=== PATIENT | female | born 1950 | race African-American/Black ===

== ENCOUNTER 2017-08-09 09:21 | Observation (INO) ==
[2017-08-09] MEDS ORDERED: ONDANSETRON 4 MG/2 ML VIAL IV STA (11:40)
[2017-08-09] MEDS ORDERED: FUROSEMIDE 40 MG/4 ML VIAL IV STA (11:40)
[2017-08-09] MEDS ORDERED: MORPHINE 2 MG/1 ML SYRINGE IV STA (11:40)
[2017-08-09] MEDS ORDERED: NITROGLYCERIN 2% OINT 1 INCH/GM PACK TOP STA (11:40)
[2017-08-09] MEDS ORDERED: ASPIRIN 325 MG TABLET PO STA (11:40)
[2017-08-09 12:19] LABS: Basophils % 0.3 % (0.0-0.8); Eosinophils % 0.5 % (0.00-10.9); Hematocrit 33.7 VOL% (35.7-47.0); Hemoglobin 10.6 GM/DL (12.0-16.0); Immature Granulocytes % 0.3 %; Immature Granulocytes Absolute 0.03 #; Lymphocytes # 2.4 10*3/uL (1.4-4.0); Lymphocytes % 26.7 % (21.3-54.2); Mean Corpuscular HGB Conc 31.5 GM/DL (32-36); Mean Corpuscular Hemoglobin 26 PG (27-34); Mean Corpuscular Volume 81.4 FL (87-102); Mean Platelet Volume 11.3 FL (9.6-12.0); Monocytes # 0.6 10*3/uL (0.11-0.8); Monocytes % 6.9 % (1.7-12.7); Neutrophils # 5.7 10*3/uL (1.4-7.4); Neutrophils % 65.3 % (38.7-73.9); Platelet Count 236 T/CUMM (130-400); Red Blood Count 4.14 MC/CUMM (3.8-5.5); Red Cell Distribution Width 15.9 % (9.3-17.3); White Blood Count 8.8 T/CUMM (4-12)
[2017-08-09 12:35] LABS: PT Patient Result 10.2 SECS
[2017-08-09 12:41] LABS: Magnesium 1.9 MG/DL (1.8-2.4)
[2017-08-09 12:50] LABS: Alanine Aminotransferase 18 U/L (13-56); Albumin 3.5 G/DL (3.4-5.0); Alkaline Phosphatase 109 U/L (45-117); Aspartate Amino Transferase 15 U/L (0-37); Blood Urea Nitrogen 11 MG/DL (7-18); Calcium 8.7 MG/DL (8.5-10.1); Glucose 111 MG/DL (74-106); Sodium 136 MMOL/L (136-145); Total Protein 7.5 G/DL (6.4-8.3); Troponin I Only < 0.015 NG/ML (0.00-0.045)
[2017-08-09 12:53] LABS: Potassium 2.5 MMOL/L (3.5-5.1)
[2017-08-09] MEDS ORDERED: POTASSIUM CHLORIDE 20 MEQ TABLET PO ONE ×2 (13:30→16:17)
[2017-08-09] MEDS ORDERED: POTASSIUM CHLORIDE 20 MEQ TABLET PO STA (13:36)
[2017-08-09] MEDS ORDERED: FUROSEMIDE 40 MG/4 ML VIAL ONE (13:41)
[2017-08-09] MEDS ORDERED: ONDANSETRON 4 MG/2 ML VIAL ONE (13:41)
[2017-08-09] MEDS ORDERED: NITROGLYCERIN 2% OINT 1 INCH/GM PACK TOP ONE (13:41)
[2017-08-09] MEDS ORDERED: MORPHINE 2 MG/1 ML SYRINGE ONE (13:41)
[2017-08-09] MEDS ORDERED: ASPIRIN 325 MG TABLET ONE (13:41)
[2017-08-09] MEDS ORDERED: LEVOFLOXACIN INJ 750 MG in PREMIX 1 EACH IV STA (13:43)
[2017-08-09] MEDS ORDERED: ENOXAPARIN 100 MG/ML SYRINGE SUBCUT STA (13:47)
[2017-08-09] MEDS ORDERED: LEVOFLOXACIN INJ 150 ML IV ONE (14:32)
[2017-08-09] MEDS ORDERED: ENOXAPARIN 120 MG/0.8 ML SYRINGE SUBCUT ONE (14:32)
[2017-08-09] MEDS ORDERED: ONDANSETRON 4 MG/2 ML VIAL IV PRN (14:57)
[2017-08-09] MEDS ORDERED: ACETAMINOPHEN 325 MG TABLET PO PRN (14:57)
[2017-08-09] MEDS ORDERED: PANTOPRAZOLE 40 MG TABLET PO SCH (15:00)
[2017-08-09] MEDS ORDERED: MAGNESIUM SULF RIDER 4 GM in PREMIX 1 EACH IV PRN (15:04)
[2017-08-09] MEDS ORDERED: ALBUTEROL/IPRATROPIUM 3 ML NEB RESP TX PRN (15:04)
[2017-08-09] MEDS ORDERED: MAGNESIUM SULF RIDER 2 GM in PREMIX 1 EACH IV PRN (15:04)
[2017-08-09 16:04] LABS: Apearance,Urine CLEAR (Clear); Bacteria,Urine Occasional /HPF (Few); Bilirubin,Urine Negative (Negative); Blood, Urine Negative (Negative); Glucose,Urine (UA) Negative (Negative); Ketones,Urine Negative (Negative); Nitrite,Urine Negative (Negative); Protein,Urine Negative; RBC,Urine <1 /HPF (0-4); Squamous Epithelial Cell,Urine Occasional /HPF (0-10); Urine Color Straw (Yellow); Urine Specific Gravity 1.003 (1.001-1.035); Urine Urobilinogen < 2.0 EU/DL (0.2-1.0); WBC,Urine <1 /HPF (0-6)
[2017-08-09] MEDS: ASPIRIN EC 81 MG TABLET PO SCH (18:43)
[2017-08-09] MEDS ORDERED: LURASIDONE 60 MG TABLET PO SCH (23:00)
[2017-08-09] MEDS ORDERED: ZALEPLON 5 MG CAPSULE PO PRN (23:00)
[2017-08-10] MEDS: MONTELUKAST 10 MG TABLET PO SCH ×2 (00:18→20:55)
[2017-08-10] MEDS: POTASSIUM CHLORIDE 20 MEQ TABLET PO SCH ×3 (00:18→20:55)
[2017-08-10 05:02] LABS: Basophils % 0.4 % (0.0-0.8); Eosinophils # 0.1 10*3/uL (0.0-0.87); Eosinophils % 0.8 % (0.00-10.9); Hematocrit 31.2 VOL% (35.7-47.0); Hemoglobin 10.1 GM/DL (12.0-16.0); Immature Granulocytes % 0.3 %; Immature Granulocytes Absolute 0.03 #; Lymphocytes % 30.3 % (21.3-54.2); Mean Corpuscular HGB Conc 32.4 GM/DL (32-36); Mean Corpuscular Hemoglobin 26 PG (27-34); Mean Corpuscular Volume 79.6 FL (87-102); Mean Platelet Volume 10.7 FL (9.6-12.0); Monocytes # 0.9 10*3/uL (0.11-0.8); Monocytes % 8.7 % (1.7-12.7); Neutrophils # 5.8 10*3/uL (1.4-7.4); Neutrophils % 59.5 % (38.7-73.9); Platelet Count 206 T/CUMM (130-400); Red Blood Count 3.92 MC/CUMM (3.8-5.5); Red Cell Distribution Width 15.9 % (9.3-17.3); White Blood Count 9.8 T/CUMM (4-12)
[2017-08-10 05:26] LABS: Calcium 8.4 MG/DL (8.5-10.1); Osmolality,Calculated 279.4 MOS/KG (273-304); Potassium 3.2 MMOL/L (3.5-5.1)
[2017-08-10] MEDS ORDERED: ALBUTEROL 2.5 MG/3 ML NEB RESP TX SCH (07:00)
[2017-08-10] MEDS ORDERED: PROMETHAZINE 25 MG TABLET PO PRN (08:37)
[2017-08-10] MEDS ORDERED: POTASSIUM CHLORIDE 20 MEQ TABLET PO ONE (08:39)
[2017-08-10] MEDS ORDERED: ASPIRIN EC 81 MG TABLET PO SCH (09:00)
[2017-08-10] MEDS ORDERED: metOLazone 5 MG TABLET PO SCH (09:00)
[2017-08-10] MEDS ORDERED: Linaclotide [Linzess] 72 MCG PO SCH (09:00)
[2017-08-10] MEDS ORDERED: predniSONE 10 MG TABLET PO SCH (09:00)
[2017-08-10] MEDS: CLINDAMYCIN 300 MG CAPSULE PO SCH ×2 (09:09→16:34)
[2017-08-10] MEDS: VALSARTAN 160 MG TABLET PO SCH (09:09)
[2017-08-10] MEDS: ASPIRIN EC 81 MG TABLET PO SCH (09:10)
[2017-08-10] MEDS: SERTRALINE 100 MG TABLET PO SCH (09:10)
[2017-08-10] MEDS: PANTOPRAZOLE 40 MG TABLET PO SCH ×2 (09:10→20:55)
[2017-08-10] MEDS: LORazepam 0.5 MG TABLET PO SCH (09:11)
[2017-08-10 10:44] LABS: Risk Ratio 3.67; VLDL CHOLESTEROL 24.2 MG/DL
[2017-08-10] MEDS: ALBUTEROL/IPRATROPIUM 3 ML NEB RESP TX SCH (18:35)
[2017-08-10] MEDS ORDERED: ROSUVASTATIN 20 MG TABLET PO SCH (21:00)
[2017-08-10] MEDS ORDERED: LURASIDONE 40 MG TABLET PO SCH (21:00)
[2017-08-10] MEDS: MORPHINE 2 MG/1 ML SYRINGE IV PRN (21:14)
[2017-08-11] MEDS: CLINDAMYCIN 300 MG CAPSULE PO SCH ×2 (01:15→10:02)
[2017-08-11] MEDS: MORPHINE 2 MG/1 ML SYRINGE IV PRN (05:20)
[2017-08-11 06:07] LABS: Basophils % 0.3 % (0.0-0.8); Eosinophils # 0.1 10*3/uL (0.0-0.87); Eosinophils % 0.6 % (0.00-10.9); Hemoglobin 9.9 GM/DL (12.0-16.0); Immature Granulocytes % 0.3 %; Immature Granulocytes Absolute 0.03 #; Lymphocytes # 3.8 10*3/uL (1.4-4.0); Lymphocytes % 35.1 % (21.3-54.2); Mean Corpuscular HGB Conc 30.9 GM/DL (32-36); Mean Corpuscular Hemoglobin 26 PG (27-34); Mean Corpuscular Volume 82.7 FL (87-102); Mean Platelet Volume 11.6 FL (9.6-12.0); Monocytes # 0.8 10*3/uL (0.11-0.8); Monocytes % 7.1 % (1.7-12.7); Neutrophils # 6.1 10*3/uL (1.4-7.4); Neutrophils % 56.6 % (38.7-73.9); Platelet Count 225 T/CUMM (130-400); Red Blood Count 3.87 MC/CUMM (3.8-5.5); Red Cell Distribution Width 16.2 % (9.3-17.3); White Blood Count 10.8 T/CUMM (4-12)
[2017-08-11 06:44] LABS: Calcium 8.9 MG/DL (8.5-10.1); Osmolality,Calculated 281.3 MOS/KG (273-304); Potassium 3.9 MMOL/L (3.5-5.1)
[2017-08-11] MEDS: ALBUTEROL/IPRATROPIUM 3 ML NEB RESP TX SCH (08:42)
[2017-08-11] MEDS: LORazepam 0.5 MG TABLET PO SCH (10:02)
[2017-08-11] MEDS: VALSARTAN 160 MG TABLET PO SCH (10:02)
[2017-08-11] MEDS: ASPIRIN EC 81 MG TABLET PO SCH (10:02)
[2017-08-11] MEDS: SERTRALINE 100 MG TABLET PO SCH (10:03)
[2017-08-11] MEDS: PANTOPRAZOLE 40 MG TABLET PO SCH (10:03)
[2017-08-11] MEDS: POTASSIUM CHLORIDE 20 MEQ TABLET PO SCH (10:03)
[2017-08-11 12:26] VITALS: BP 126/57
== END 2017-08-11 12:30 | disposition home or self-care (01) ==
LOC: N.ED 09:21 → N.EDINP 09:21 → N.TELES 17:15 → N.2E 08-10 18:53
PROVIDERS: ADMIT Internal Medicine; ATTEND Internal Medicine

== ENCOUNTER 2018-06-27 13:50 | Observation (INO) ==
[2018-06-27 14:30] LABS: Basophils % 0.5 % (0.0-0.8); Eosinophils # 0.1 10*3/uL (0.0-0.87); Eosinophils % 0.8 % (0.00-10.9); Hematocrit 36.1 VOL% (35.7-47.0); Hemoglobin 11.5 GM/DL (12.0-16.0); Immature Granulocytes % 0.4 %; Immature Granulocytes Absolute 0.03 #; Lymphocytes # 2.9 10*3/uL (1.4-4.0); Lymphocytes % 35.3 % (21.3-54.2); Mean Corpuscular HGB Conc 31.9 GM/DL (32-36); Mean Corpuscular Hemoglobin 27 PG (27-34); Mean Corpuscular Volume 83.4 FL (87-102); Mean Platelet Volume 10.5 FL (9.6-12.0); Monocytes # 0.6 10*3/uL (0.11-0.8); Monocytes % 7.3 % (1.7-12.7); Neutrophils # 4.6 10*3/uL (1.4-7.4); Neutrophils % 55.7 % (38.7-73.9); Platelet Count 294 T/CUMM (130-400); Red Blood Count 4.33 MC/CUMM (3.8-5.5); Red Cell Distribution Width 14.1 % (9.3-17.3); White Blood Count 8.3 T/CUMM (4-12)
[2018-06-27 14:44] LABS: Osmolality,Calculated 260.7 MOS/KG (273-304)
[2018-06-27 14:48] LABS: Potassium 2.4 MMOL/L (3.5-5.1)
[2018-06-27 14:54] LABS: Apearance,Urine CLEAR (Clear); Bilirubin,Urine Negative (Negative); Blood, Urine Negative (Negative); Glucose,Urine (UA) Negative (Negative); Hyaline Casts,Urine 3 /LPF (0-3); Ketones,Urine Negative (Negative); Mucus,Urine Occasional /LPF (Occasional); Nitrite,Urine Negative (Negative); Protein,Urine Negative; RBC,Urine <1 /HPF (0-4); Squamous Epithelial Cell,Urine Occasional /HPF (0-10); Urine Color Yellow (Yellow); Urine Urobilinogen < 2.0 EU/DL (0.2-1.0); WBC,Urine <1 /HPF (0-6)
[2018-06-27] MEDS ORDERED: POTASSIUM CHLORIDE 20 MEQ TABLET PO STA (14:55)
[2018-06-27] MEDS ORDERED: POTASSIUM CHLORIDE RIDER 20 MEQ in PREMIX 1 EACH IV STA (14:58)
[2018-06-27] MEDS: POTASSIUM CHLORIDE RIDER 10 MEQ in PREMIX 1 EACH IV SCH ×2 (15:25→18:09)
[2018-06-27] MEDS ORDERED: DOCUSATE SODIUM 100 MG CAPSULE PO PRN (15:58)
[2018-06-27] MEDS ORDERED: LACTULOSE 20 GM/30 ML UDCUP PO PRN (15:58)
[2018-06-27] MEDS ORDERED: ONDANSETRON 4 MG/2 ML VIAL IV PRN (15:58)
[2018-06-27] MEDS ORDERED: SODIUM CHLORIDE 0.9% 1,000 ML IV SCH (16:00)
[2018-06-27] MEDS ORDERED: AMITRIPTYLINE 10 MG TABLET PO PRN (16:00)
[2018-06-27] MEDS ORDERED: MAGNESIUM SULF RIDER 2 GM in PREMIX 1 EACH IV PRN (16:06)
[2018-06-27] MEDS ORDERED: MAGNESIUM SULF RIDER 4 GM in PREMIX 1 EACH IV PRN (16:06)
[2018-06-27] MEDS ORDERED: NITROGLYCERIN SL 0.4 MG TABLET SL PRN (17:13)
[2018-06-27] MEDS: POTASSIUM CHLORIDE 20 MEQ TABLET PO SCH ×3 (18:09→22:25)
[2018-06-27] MEDS: SPIRONOLACTONE 50 MG TABLET PO SCH (18:09)
[2018-06-27] MEDS: DOCUSATE SODIUM 100 MG CAPSULE PO SCH (18:27)
[2018-06-27] MEDS: ALBUTEROL/IPRATROPIUM 3 ML NEB RESP TX SCH (18:45)
[2018-06-27] MEDS ORDERED: ACETAMINOPHEN 325 MG TABLET PO PRN (20:04)
[2018-06-27] MEDS: MECLIZINE 12.5 MG TABLET PO SCH (20:26)
[2018-06-27] MEDS ORDERED: MONTELUKAST 10 MG TABLET PO SCH (21:00)
[2018-06-27] MEDS ORDERED: ROSUVASTATIN 20 MG TABLET PO SCH (21:00)
[2018-06-27] MEDS: POTASSIUM CHLORIDE RIDER 10 MEQ in PREMIX 1 EACH IV PRN ×3 (21:25→23:43)
[2018-06-27] MEDS ORDERED: ZALEPLON 5 MG CAPSULE PO PRN (21:35)
[2018-06-27] MEDS: IBUPROFEN 600 MG TABLET PO PRN (22:25)
[2018-06-28] MEDS: POTASSIUM CHLORIDE RIDER 10 MEQ in PREMIX 1 EACH IV PRN ×2 (00:46→01:57)
[2018-06-28] MEDS: POTASSIUM CHLORIDE 20 MEQ TABLET PO SCH ×2 (01:57→04:27)
[2018-06-28 05:45] LABS: Basophils % 0.4 % (0.0-0.8); Eosinophils # 0.1 10*3/uL (0.0-0.87); Hematocrit 35.2 VOL% (35.7-47.0); Hemoglobin 11.3 GM/DL (12.0-16.0); Immature Granulocytes % 0.3 %; Immature Granulocytes Absolute 0.02 #; Lymphocytes # 2.4 10*3/uL (1.4-4.0); Lymphocytes % 35.9 % (21.3-54.2); Mean Corpuscular HGB Conc 32.1 GM/DL (32-36); Mean Corpuscular Hemoglobin 27 PG (27-34); Mean Corpuscular Volume 83.4 FL (87-102); Mean Platelet Volume 10.4 FL (9.6-12.0); Monocytes # 0.6 10*3/uL (0.11-0.8); Monocytes % 8.9 % (1.7-12.7); Neutrophils # 3.6 10*3/uL (1.4-7.4); Neutrophils % 53.5 % (38.7-73.9); Platelet Count 252 T/CUMM (130-400); Red Blood Count 4.22 MC/CUMM (3.8-5.5); Red Cell Distribution Width 13.9 % (9.3-17.3); White Blood Count 6.7 T/CUMM (4-12)
[2018-06-28 06:33] LABS: Albumin 3.1 G/DL (3.4-5.0); Bilirubin,Total 0.5 MG/DL (0.2-1.0); Calcium 8.7 MG/DL (8.5-10.1); Osmolality,Calculated 262.5 MOS/KG (273-304); Potassium 3.9 MMOL/L (3.5-5.1); Risk Ratio 1.83; Thyroid Stimulating Hormone 0.878 uIU/ml (0.358-3.74); VLDL CHOLESTEROL 13.4 MG/DL
[2018-06-28] MEDS: ALBUTEROL/IPRATROPIUM 3 ML NEB RESP TX SCH (07:15)
[2018-06-28 08:06] VITALS: BP 131/72
[2018-06-28] MEDS ORDERED: amLODIPine 10 MG TABLET PO SCH (09:00)
[2018-06-28] MEDS ORDERED: IPRATROPIUM/ALBUTEROL INHALER INH SCH (09:00)
[2018-06-28] MEDS ORDERED: ASPIRIN EC 81 MG TABLET PO SCH (09:00)
[2018-06-28] MEDS ORDERED: CETIRIZINE 10 MG TABLET PO SCH (09:00)
[2018-06-28] MEDS ORDERED: PANTOPRAZOLE 40 MG TABLET PO SCH (09:00)
[2018-06-28] MEDS ORDERED: SERTRALINE 100 MG TABLET PO SCH (09:00)
[2018-06-28] MEDS: DOCUSATE SODIUM 100 MG CAPSULE PO SCH (09:18)
[2018-06-28] MEDS: SPIRONOLACTONE 50 MG TABLET PO SCH (09:18)
[2018-06-28] MEDS: MECLIZINE 12.5 MG TABLET PO SCH (09:18)
[2018-06-28] MEDS: IBUPROFEN 600 MG TABLET PO PRN (09:19)
[2018-06-28] MEDS ORDERED: LACTULOSE 20 GM/30 ML UDCUP PO ONE (09:20)
== END 2018-06-28 10:49 | disposition home or self-care (01) ==
LOC: N.EDINP 13:50 → N.ED 13:50 → N.5E 16:46
PROVIDERS: ADMIT Internal Medicine; ATTEND Internal Medicine

== ENCOUNTER 2018-12-26 06:17 | Observation (INO) ==
[2018-12-26] MEDS ORDERED: ASPIRIN 325 MG TABLET PO STA (06:46)
[2018-12-26] MEDS ORDERED: SODIUM CHLORIDE 0.9% 1,000 ML IV STA (06:46)
[2018-12-26 06:48] LABS: Basophils % 0.5 % (0.0-0.8); Eosinophils # 0.1 10*3/uL (0.0-0.87); Eosinophils % 1.4 % (0.00-10.9); Hematocrit 36.1 VOL% (35.7-47.0); Hemoglobin 11.1 GM/DL (12.0-16.0); Immature Granulocytes % 0.2 %; Immature Granulocytes Absolute 0.01 #; Lymphocytes # 2.5 10*3/uL (1.4-4.0); Lymphocytes % 42.6 % (21.3-54.2); Mean Corpuscular HGB Conc 30.7 GM/DL (32-36); Mean Platelet Volume 11.1 FL (9.6-12.0); Monocytes % 8.7 % (1.7-12.7); Neutrophils % 46.6 % (38.7-73.9); Platelet Count 190 T/CUMM (130-400); Red Cell Distribution Width 13.5 % (9.3-17.3); White Blood Count 5.9 T/CUMM (4-12)
[2018-12-26 07:03] LABS: Alanine Aminotransferase 16 U/L (13-56); Albumin 3.6 G/DL (3.4-5.0); Alkaline Phosphatase 93 U/L (45-117); Aspartate Amino Transferase 13 U/L (0-37); Bilirubin,Total < 0.39 MG/DL (0.2-1.0); Blood Urea Nitrogen 14 MG/DL (7-18); Calcium 8.8 MG/DL (8.5-10.1); Glucose 108 MG/DL (74-106); Total Protein 7.2 G/DL (6.4-8.3); Troponin I < 0.015 NG/ML (0.00-0.045)
[2018-12-26 07:19] LABS: Calcium 8.7 MG/DL (8.5-10.1); Osmolality,Calculated 289.7 MOS/KG (273-304)
[2018-12-26] MEDS ORDERED: ONDANSETRON 4 MG/2 ML VIAL ONE (08:00)
[2018-12-26] MEDS ORDERED: ONDANSETRON 4 MG/2 ML VIAL IV ONE (08:04)
[2018-12-26] MEDS ORDERED: ACETAMINOPHEN 325 MG TABLET PO PRN (09:29)
[2018-12-26] MEDS ORDERED: ONDANSETRON 4 MG/2 ML VIAL IV PRN (09:29)
[2018-12-26] MEDS ORDERED: DOCUSATE SODIUM 100 MG CAPSULE PO PRN (09:29)
[2018-12-26] MEDS ORDERED: ALBUTEROL/IPRATROPIUM 3 ML NEB RESP TX PRN (09:33)
[2018-12-26] MEDS ORDERED: NITROGLYCERIN SL 0.4 MG TABLET SL PRN (09:36)
[2018-12-26 10:31] LABS: Risk Ratio 1.93; Thyroid Stimulating Hormone 0.428 uIU/ml (0.358-3.74); VLDL CHOLESTEROL 11.6 MG/DL
[2018-12-26] MEDS: LEVOFLOXACIN 750 MG TABLET PO SCH (12:10)
[2018-12-26] MEDS: SERTRALINE 100 MG TABLET PO SCH (16:27)
[2018-12-26] MEDS ORDERED: ENOXAPARIN 40 MG/0.4 ML SYRINGE SUBCUT SCH (21:00)
[2018-12-26] MEDS ORDERED: ZALEPLON 5 MG CAPSULE PO SCH (21:00)
[2018-12-26] MEDS ORDERED: ROSUVASTATIN 20 MG TABLET PO SCH (21:00)
[2018-12-26] MEDS ORDERED: MONTELUKAST 10 MG TABLET PO SCH (21:00)
[2018-12-26] MEDS ORDERED: diphenhydrAMINE CAP 25 MG CAPSULE PO SCH (21:00)
[2018-12-27 05:12] LABS: Basophils % 0.3 % (0.0-0.8); Eosinophils # 0.2 10*3/uL (0.0-0.87); Eosinophils % 2.8 % (0.00-10.9); Hematocrit 35.4 VOL% (35.7-47.0); Immature Granulocytes % 0.2 %; Immature Granulocytes Absolute 0.01 #; Lymphocytes # 3.1 10*3/uL (1.4-4.0); Lymphocytes % 50.7 % (21.3-54.2); Mean Corpuscular HGB Conc 31.1 GM/DL (32-36); Mean Platelet Volume 11.9 FL (9.6-12.0); Monocytes % 7.6 % (1.7-12.7); Neutrophils % 38.4 % (38.7-73.9); Platelet Count 182 T/CUMM (130-400); Red Blood Count 4.07 MC/CUMM (3.8-5.5); Red Cell Distribution Width 13.5 % (9.3-17.3); White Blood Count 6.1 T/CUMM (4-12)
[2018-12-27 05:52] LABS: Eosinophils 4 % (0-10); Lymphocytes 54 % (20-55); Pappenheimer Bodies Few; Platelet Estimate Decreased; Segmented Neutrophils 39 % (50-85); Total Cells Counted 100
[2018-12-27 05:58] LABS: Albumin 3.4 G/DL (3.4-5.0); Bilirubin,Total 0.5 MG/DL (0.2-1.0); Calcium 8.7 MG/DL (8.5-10.1); Osmolality,Calculated 281.1 MOS/KG (273-304); Total Protein 6.9 G/DL (6.4-8.3)
[2018-12-27] MEDS ORDERED: ASPIRIN EC 81 MG TABLET PO SCH (09:00)
[2018-12-27] MEDS ORDERED: CETIRIZINE 10 MG TABLET PO SCH (09:00)
[2018-12-27] MEDS ORDERED: PANTOPRAZOLE 40 MG TABLET PO SCH (09:00)
[2018-12-27] MEDS ORDERED: amLODIPine 10 MG TABLET PO SCH (09:00)
[2018-12-27] MEDS ORDERED: FERROUS SULFATE 325 MG TABLET PO SCH (09:00)
[2018-12-27] MEDS ORDERED: methylPREDNISolone ACETATE 40 MG/1 ML VIAL IM ONE (09:00)
[2018-12-27] MEDS: SERTRALINE 100 MG TABLET PO SCH (09:04)
[2018-12-27] MEDS: LEVOFLOXACIN 750 MG TABLET PO SCH (09:04)
[2018-12-27 12:04] VITALS: BP 165/72
== END 2018-12-27 13:40 | disposition home or self-care (01) ==
LOC: N.EDINP 06:17 → N.ED 06:17 → N.2E 08:01
PROVIDERS: ADMIT Internal Medicine; ATTEND Internal Medicine

== ENCOUNTER 2019-05-10 11:43 | Observation (INO) ==
[2019-05-10] MEDS ORDERED: ONDANSETRON 4 MG/2 ML VIAL IV STA (12:14)
[2019-05-10] MEDS ORDERED: ASPIRIN 325 MG TABLET PO STA (12:14)
[2019-05-10] MEDS ORDERED: NITROGLYCERIN 2% OINT 1 INCH/GM PACK TOP STA (12:14)
[2019-05-10 12:35] LABS: Basophils % 0.2 % (0.0-0.8); Eosinophils # 0.1 10*3/uL (0.0-0.87); Eosinophils % 1.1 % (0.00-10.9); Hematocrit 36.3 VOL% (35.7-47.0); Hemoglobin 11.4 GM/DL (12.0-16.0); Immature Granulocytes % 0.4 %; Immature Granulocytes Absolute 0.02 #; Lymphocytes % 36.2 % (21.3-54.2); Mean Corpuscular HGB Conc 31.4 GM/DL (32-36); Mean Corpuscular Volume 87.7 FL (87-102); Mean Platelet Volume 11.5 FL (9.6-12.0); Monocytes % 11.7 % (1.7-12.7); Neutrophils % 50.4 % (38.7-73.9); Platelet Count 164 T/CUMM (130-400); Red Blood Count 4.14 MC/CUMM (3.8-5.5); Red Cell Distribution Width 14.6 % (9.3-17.3); White Blood Count 5.5 T/CUMM (4-12)
[2019-05-10 12:42] LABS: INR 0.9; PT Patient Result 10.2 SECS (9.6-12.2); Partial Thromboplastin Time 22.6 SECS (20.8-36.0)
[2019-05-10 12:58] LABS: Alanine Aminotransferase 18 U/L (13-56); Albumin 3.4 G/DL (3.4-5.0); Alkaline Phosphatase 81 U/L (45-117); Aspartate Amino Transferase 14 U/L (0-37); Blood Urea Nitrogen 8 MG/DL (7-18); Calcium 8.6 MG/DL (8.5-10.1); Estimated Glom Filtration Rate 80 ML/MIN; Glucose 88 MG/DL (74-106); Osmolality,Calculated 284.7 MOS/KG (273-304); Total Protein 6.8 G/DL (6.4-8.3); Troponin I < 0.015 NG/ML (0.00-0.045)
[2019-05-10] MEDS ORDERED: ALBUTEROL/IPRATROPIUM 3 ML NEB RESP TX STA (12:59)
[2019-05-10] MEDS ORDERED: FUROSEMIDE 40 MG/4 ML VIAL IV STA (12:59)
[2019-05-10] MEDS ORDERED: ONDANSETRON 4 MG/2 ML VIAL IV PRN (14:47)
[2019-05-10] MEDS ORDERED: ACETAMINOPHEN 325 MG TABLET PO PRN (14:47)
[2019-05-10] MEDS ORDERED: ENOXAPARIN 40 MG/0.4 ML SYRINGE SUBCUT SCH (15:00)
[2019-05-10] MEDS ORDERED: LACTULOSE 20 GM/30 ML UDCUP PO PRN (15:01)
[2019-05-10] MEDS ORDERED: ALBUTEROL 2.5 MG/3 ML NEB RESP TX PRN (15:01)
[2019-05-10] MEDS ORDERED: predniSONE 20 MG TABLET PO PRN (15:01)
[2019-05-10 16:46] LABS: Apearance,Urine CLEAR (Clear); Bacteria,Urine Occasional /HPF (Few); Bilirubin,Urine Negative (Negative); Blood, Urine Negative (Negative); Glucose,Urine (UA) Negative (Negative); Ketones,Urine Negative (Negative); Nitrite,Urine Negative (Negative); Protein,Urine Negative; RBC,Urine <1 /HPF (0-4); Urine Color Colorless (Yellow); Urine Specific Gravity 1.009 (1.001-1.035); Urine Urobilinogen < 2.0 EU/DL (0.2-1.0); WBC,Urine <1 /HPF (0-6)
[2019-05-10] MEDS ORDERED: LURASIDONE 40 MG TABLET PO SCH (17:00)
[2019-05-10] MEDS ORDERED: FUROSEMIDE 40 MG/4 ML VIAL IV ONE (18:00)
[2019-05-10] MEDS ORDERED: ROSUVASTATIN 20 MG TABLET PO SCH (21:00)
[2019-05-10] MEDS ORDERED: traZODone 50 MG TABLET PO SCH (21:00)
[2019-05-10] MEDS ORDERED: MONTELUKAST 10 MG TABLET PO SCH (21:00)
[2019-05-10] MEDS: tiZANidine 4 MG TABLET PO PRN (21:15)
[2019-05-10] MEDS: busPIRone 10 MG TABLET PO SCH (21:15)
[2019-05-10] MEDS: TOPIRAMATE 25 MG TABLET PO PRN (22:20)
[2019-05-11] MEDS: POTASSIUM CHLORIDE 20 MEQ TABLET PO PRN ×3 (02:13→06:35)
[2019-05-11 03:00] LABS: Basophils % 0.5 % (0.0-0.8); Eosinophils # 0.1 10*3/uL (0.0-0.87); Eosinophils % 1.6 % (0.00-10.9); Hemoglobin 11.2 GM/DL (12.0-16.0); Immature Granulocytes % 0.2 %; Immature Granulocytes Absolute 0.01 #; Lymphocytes # 2.4 10*3/uL (1.4-4.0); Mean Corpuscular HGB Conc 31.1 GM/DL (32-36); Mean Corpuscular Volume 85.9 FL (87-102); Mean Platelet Volume 11.9 FL (9.6-12.0); Neutrophils % 46.7 % (38.7-73.9); Platelet Count 176 T/CUMM (130-400); Red Blood Count 4.19 MC/CUMM (3.8-5.5); Red Cell Distribution Width 14.7 % (9.3-17.3); White Blood Count 6.1 T/CUMM (4-12)
[2019-05-11 03:20] LABS: Calcium 8.5 MG/DL (8.5-10.1); Osmolality,Calculated 281.3 MOS/KG (273-304)
[2019-05-11] MEDS: tiZANidine 4 MG TABLET PO PRN ×2 (04:45→11:39)
[2019-05-11] MEDS ORDERED: POTASSIUM CHLORIDE 20 MEQ TABLET PO ONE ×2 (07:37→11:00)
[2019-05-11] MEDS ORDERED: MAGNESIUM SULF RIDER 2 GM in PREMIX 1 EACH IV PRN (07:42)
[2019-05-11] MEDS ORDERED: MAGNESIUM SULF RIDER 4 GM in PREMIX 1 EACH IV PRN (07:42)
[2019-05-11] MEDS ORDERED: FUROSEMIDE 40 MG/4 ML VIAL IV SCH (08:00)
[2019-05-11] MEDS ORDERED: SERTRALINE 100 MG TABLET PO SCH (09:00)
[2019-05-11] MEDS ORDERED: amLODIPine 10 MG TABLET PO SCH (09:00)
[2019-05-11] MEDS ORDERED: PANTOPRAZOLE 40 MG TABLET PO SCH (09:00)
[2019-05-11] MEDS ORDERED: ASPIRIN EC 81 MG TABLET PO SCH (09:00)
[2019-05-11] MEDS: busPIRone 10 MG TABLET PO SCH (09:47)
[2019-05-11] MEDS: TOPIRAMATE 25 MG TABLET PO PRN (09:48)
[2019-05-11 11:30] VITALS: BP 117/50
[2019-05-11] MEDS ORDERED: TOPIRAMATE 25 MG TABLET PO SCH (21:00)
[2019-05-12] MEDS ORDERED: FERROUS SULFATE 325 MG TABLET PO SCH (09:00)
== END 2019-05-11 13:50 | disposition home or self-care (01) ==
LOC: N.ED 11:43 → N.EDINP 11:43 → N.2W 15:18
PROVIDERS: ADMIT Internal Medicine Geriatric Medicine; ATTEND Internal Medicine Geriatric Medicine

== ENCOUNTER 2022-04-20 09:22 | Inpatient (IN) ==
[2022-04-20] MEDS ORDERED: LEVOFLOXACIN INJ 500 MG/100 ML PREMIX IV STA (10:22)
[2022-04-20 10:26] LABS: Basophils % 0.2 % (0.0-0.8); Hematocrit 39.4 VOL% (35.7-47.0); Hemoglobin 12.3 GM/DL (12.0-16.0); Immature Granulocytes % 0.5 %; Immature Granulocytes Absolute 0.07 #; Lymphocytes # 0.5 10*3/uL (1.4-4.0); Lymphocytes % 3.2 % (21.3-54.2); Mean Corpuscular HGB Conc 31.2 GM/DL (32-36); Mean Corpuscular Volume 85.8 FL (87-102); Mean Platelet Volume 11.4 FL (9.6-12.0); Monocytes # 0.8 10*3/uL (0.11-0.8); Monocytes % 5.1 % (1.7-12.7); Platelet Count 156 T/CUMM (130-400); Red Blood Count 4.59 MC/CUMM (3.8-5.5); Red Cell Distribution Width 15.3 % (9.3-17.3)
[2022-04-20 10:41] LABS: Albumin 3.4 G/DL (3.4-5.0); Bilirubin,Total 0.6 MG/DL (0.20-1.00); Calcium 9.1 MG/DL (8.5-10.1); Osmolality,Calculated 279.4 MOS/KG (273-304); Potassium 3.4 MMOL/L (3.5-5.1); Total Protein 8.2 G/DL (6.4-8.2)
[2022-04-20 10:44] LABS: Band Neutrophils 1 % (0-10); Lymphocytes 5 % (20-55); Total Cells Counted 100
[2022-04-20 10:45] LABS: Hypochromia Slight; Microcytosis Slight; Platelet Estimate Adequate
[2022-04-20 11:48] LABS: Bilirubin,Urine Negative (Negative); Blood, Urine Moderate mg/dL (Negative); Glucose,Urine (UA) Negative (Negative); Ketones,Urine Negative (Negative); Mucus,Urine Occasional /LPF (Occasional); Nitrite,Urine Negative (Negative); Protein,Urine 100 mg/dL (Negative); RBC,Urine 1 /HPF (0-4); Squamous Epithelial Cell,Urine Occasional /HPF (0-10); Urine Appearance Slightly Hazy (Clear); Urine Color Yellow (Yellow)
[2022-04-20] MEDS ORDERED: DEXTROSE 10% 250 ML BAG IV PRN (12:12)
[2022-04-20] MEDS ORDERED: GLUCAGON 1 MG VIAL IM PRN (12:12)
[2022-04-20] MEDS ORDERED: tiZANidine 4 MG TABLET PO PRN (12:15)
[2022-04-20] MEDS ORDERED: LACTULOSE 20 GM/30 ML UDCUP PO PRN (12:15)
[2022-04-20] MEDS ORDERED: ALBUTEROL 2.5 MG/3 ML NEB RESP TX PRN (12:15)
[2022-04-20] MEDS ORDERED: NITROGLYCERIN SL 0.4 MG TABLET SL PRN (12:15)
[2022-04-20] MEDS ORDERED: diphenhydrAMINE CAP 25 MG CAPSULE PO PRN (12:15)
[2022-04-20] MEDS ORDERED: POTASSIUM CHLORIDE 20 MEQ TABLET PO STA (12:29)
[2022-04-20] MEDS ORDERED: hydrALAZINE 20 MG/1 ML VIAL IV PRN (12:32)
[2022-04-20] MEDS: amLODIPine 10 MG TABLET PO SCH (13:45)
[2022-04-20] MEDS: ENOXAPARIN 40 MG/0.4 ML SYRINGE SUBCUT SCH (14:16)
[2022-04-20] MEDS ORDERED: MEROPENEM 500 MG in SODIUM CHLORIDE 0.9% 100 ML IV SCH (15:00)
[2022-04-20] MEDS: ALBUTEROL/IPRATROPIUM 3 ML NEB RESP TX SCH ×2 (15:35→19:25)
[2022-04-20] MEDS: AZITHROMYCIN INJ 500 MG in SODIUM CHLORIDE 0.9% 250 ML IV SCH (17:05)
[2022-04-20] MEDS: ROSUVASTATIN 20 MG TABLET PO SCH (21:14)
[2022-04-20] MEDS: MONTELUKAST 10 MG TABLET PO SCH (21:15)
[2022-04-20] MEDS: traZODone 50 MG TABLET PO SCH (21:15)
[2022-04-20] MEDS: QUEtiapine 25 MG TABLET PO SCH (21:15)
[2022-04-20] MEDS: TOPIRAMATE 25 MG TABLET PO SCH (21:15)
[2022-04-21] MEDS: MEROPENEM 500 MG in SODIUM CHLORIDE 0.9% 100 ML IV SCH ×4 (02:20→20:29)
[2022-04-21] MEDS: MORPHINE 2 MG/1 ML SYRINGE IV PRN ×3 (03:40→19:29)
[2022-04-21 05:58] LABS: Basophils % 0.2 % (0.0-0.8); Eosinophils % 0.1 % (0.00-10.9); Hematocrit 34.9 VOL% (35.7-47.0); Hemoglobin 10.8 GM/DL (12.0-16.0); Immature Granulocytes % 0.3 %; Immature Granulocytes Absolute 0.04 #; Lymphocytes # 1.9 10*3/uL (1.4-4.0); Lymphocytes % 15.6 % (21.3-54.2); Mean Corpuscular HGB Conc 30.9 GM/DL (32-36); Mean Corpuscular Volume 86.6 FL (87-102); Mean Platelet Volume 11.7 FL (9.6-12.0); Monocytes # 0.8 10*3/uL (0.11-0.8); Monocytes % 6.9 % (1.7-12.7); Neutrophils % 76.9 % (38.7-73.9); Platelet Count 125 T/CUMM (130-400); Red Blood Count 4.03 MC/CUMM (3.8-5.5); Red Cell Distribution Width 15.4 % (9.3-17.3); White Blood Count 12.2 T/CUMM (4-12)
[2022-04-21 06:25] LABS: Calcium 8.4 MG/DL (8.5-10.1); Potassium 3.2 MMOL/L (3.5-5.1); Risk Ratio 1.79; VLDL Cholesterol 12.2 MG/DL
[2022-04-21] MEDS: ALBUTEROL/IPRATROPIUM 3 ML NEB RESP TX SCH ×4 (07:20→20:30)
[2022-04-21] MEDS ORDERED: PANTOPRAZOLE 40 MG TABLET PO SCH (09:00)
[2022-04-21] MEDS: TOPIRAMATE 25 MG TABLET PO SCH ×2 (10:57→20:59)
[2022-04-21] MEDS: PANTOPRAZOLE 40 MG TABLET PO SCH (10:57)
[2022-04-21] MEDS: amLODIPine 10 MG TABLET PO SCH (10:57)
[2022-04-21] MEDS: POTASSIUM CHLORIDE 20 MEQ TABLET PO SCH (10:57)
[2022-04-21] MEDS: QUEtiapine 25 MG TABLET PO SCH ×2 (10:58→20:59)
[2022-04-21] MEDS: LINACLOTIDE 145 MCG CAPSULE PO SCH (10:58)
[2022-04-21] MEDS: SERTRALINE 100 MG TABLET PO SCH (11:03)
[2022-04-21] MEDS: ONDANSETRON 4 MG/2 ML VIAL IV PRN ×2 (11:07→17:08)
[2022-04-21] MEDS ORDERED: VANCOMYCIN INJ 1,500 MG in SODIUM CHLORIDE 0.9% 500 ML IV SCH (15:00)
[2022-04-21] MEDS: ENOXAPARIN 40 MG/0.4 ML SYRINGE SUBCUT SCH (16:35)
[2022-04-21] MEDS: AZITHROMYCIN INJ 500 MG in SODIUM CHLORIDE 0.9% 250 ML IV SCH ×3 (17:09→18:39)
[2022-04-21] MEDS: MONTELUKAST 10 MG TABLET PO SCH (20:59)
[2022-04-21] MEDS: ROSUVASTATIN 20 MG TABLET PO SCH (20:59)
[2022-04-21] MEDS: traZODone 50 MG TABLET PO SCH (20:59)
[2022-04-22] MEDS: MEROPENEM 500 MG in SODIUM CHLORIDE 0.9% 100 ML IV SCH ×4 (02:10→20:04)
[2022-04-22] MEDS: MORPHINE 2 MG/1 ML SYRINGE IV PRN ×3 (03:10→21:45)
[2022-04-22 05:03] LABS: Basophils % 0.2 % (0.0-0.8); Eosinophils # 0.2 10*3/uL (0.0-0.87); Eosinophils % 1.8 % (0.00-10.9); Hematocrit 32.4 VOL% (35.7-47.0); Immature Granulocytes % 0.5 %; Immature Granulocytes Absolute 0.04 #; Lymphocytes # 1.8 10*3/uL (1.4-4.0); Lymphocytes % 21.4 % (21.3-54.2); Mean Corpuscular HGB Conc 30.9 GM/DL (32-36); Mean Corpuscular Volume 86.2 FL (87-102); Mean Platelet Volume 11.6 FL (9.6-12.0); Monocytes # 0.6 10*3/uL (0.11-0.8); Monocytes % 7.5 % (1.7-12.7); Neutrophils % 68.6 % (38.7-73.9); Platelet Count 122 T/CUMM (130-400); Red Blood Count 3.76 MC/CUMM (3.8-5.5); Red Cell Distribution Width 15.6 % (9.3-17.3); White Blood Count 8.3 T/CUMM (4-12)
[2022-04-22 05:17] LABS: Calcium 8.3 MG/DL (8.5-10.1); Osmolality,Calculated 278.4 MOS/KG (273-304); Potassium 3.5 MMOL/L (3.5-5.1)
[2022-04-22] MEDS: ALBUTEROL/IPRATROPIUM 3 ML NEB RESP TX SCH ×4 (07:20→19:14)
[2022-04-22] MEDS: LINACLOTIDE 145 MCG CAPSULE PO SCH (09:26)
[2022-04-22] MEDS: TOPIRAMATE 25 MG TABLET PO SCH ×2 (09:26→20:04)
[2022-04-22] MEDS: SERTRALINE 100 MG TABLET PO SCH (09:26)
[2022-04-22] MEDS: ASPIRIN EC 81 MG TABLET PO SCH (09:26)
[2022-04-22] MEDS: QUEtiapine 25 MG TABLET PO SCH ×2 (09:27→20:04)
[2022-04-22] MEDS: amLODIPine 10 MG TABLET PO SCH (09:27)
[2022-04-22] MEDS: POTASSIUM CHLORIDE 20 MEQ TABLET PO SCH (09:27)
[2022-04-22] MEDS: PANTOPRAZOLE 40 MG TABLET PO SCH (09:27)
[2022-04-22] MEDS ORDERED: FUROSEMIDE 40 MG/4 ML VIAL IV ONE (12:12)
[2022-04-22] MEDS: ONDANSETRON 4 MG/2 ML VIAL IV PRN (12:22)
[2022-04-22] MEDS: AZITHROMYCIN 250 MG TABLET PO SCH (15:22)
[2022-04-22] MEDS: MONTELUKAST 10 MG TABLET PO SCH (20:03)
[2022-04-22] MEDS: traZODone 50 MG TABLET PO SCH (20:03)
[2022-04-22] MEDS: ROSUVASTATIN 20 MG TABLET PO SCH (20:03)
[2022-04-23] MEDS: MEROPENEM 500 MG in SODIUM CHLORIDE 0.9% 100 ML IV SCH ×4 (03:27→20:49)
[2022-04-23 04:52] LABS: Basophils % 0.5 % (0.0-0.8); Eosinophils # 0.2 10*3/uL (0.0-0.87); Eosinophils % 2.7 % (0.00-10.9); Hematocrit 33.4 VOL% (35.7-47.0); Hemoglobin 10.2 GM/DL (12.0-16.0); Immature Granulocytes % 0.5 %; Immature Granulocytes Absolute 0.03 #; Lymphocytes # 1.8 10*3/uL (1.4-4.0); Lymphocytes % 26.9 % (21.3-54.2); Mean Corpuscular HGB Conc 30.5 GM/DL (32-36); Mean Corpuscular Volume 86.8 FL (87-102); Mean Platelet Volume 11.4 FL (9.6-12.0); Monocytes # 0.7 10*3/uL (0.11-0.8); Neutrophils % 59.4 % (38.7-73.9); Platelet Count 143 T/CUMM (130-400); Red Blood Count 3.85 MC/CUMM (3.8-5.5); Red Cell Distribution Width 15.5 % (9.3-17.3); White Blood Count 6.6 T/CUMM (4-12)
[2022-04-23 05:14] LABS: Calcium 8.5 MG/DL (8.5-10.1); Osmolality,Calculated 280.3 MOS/KG (273-304); Potassium 3.7 MMOL/L (3.5-5.1)
[2022-04-23] MEDS: ALBUTEROL/IPRATROPIUM 3 ML NEB RESP TX SCH ×4 (07:31→19:25)
[2022-04-23] MEDS: LINACLOTIDE 145 MCG CAPSULE PO SCH (08:48)
[2022-04-23] MEDS: amLODIPine 10 MG TABLET PO SCH (08:56)
[2022-04-23] MEDS: PANTOPRAZOLE 40 MG TABLET PO SCH (08:56)
[2022-04-23] MEDS: ASPIRIN EC 81 MG TABLET PO SCH (08:56)
[2022-04-23] MEDS: AZITHROMYCIN 250 MG TABLET PO SCH (08:56)
[2022-04-23] MEDS: SERTRALINE 100 MG TABLET PO SCH (08:56)
[2022-04-23] MEDS: TOPIRAMATE 25 MG TABLET PO SCH ×2 (08:56→20:48)
[2022-04-23] MEDS: DOCUSATE SODIUM 100 MG CAPSULE PO PRN (08:56)
[2022-04-23] MEDS: QUEtiapine 25 MG TABLET PO SCH ×2 (08:57→20:48)
[2022-04-23] MEDS: POTASSIUM CHLORIDE 20 MEQ TABLET PO SCH (08:57)
[2022-04-23] MEDS: ONDANSETRON 4 MG/2 ML VIAL IV PRN (11:38)
[2022-04-23] MEDS: MORPHINE 2 MG/1 ML SYRINGE IV PRN (11:39)
[2022-04-23] MEDS: traZODone 50 MG TABLET PO SCH (20:48)
[2022-04-23] MEDS: ROSUVASTATIN 20 MG TABLET PO SCH (20:48)
[2022-04-23] MEDS: MONTELUKAST 10 MG TABLET PO SCH (20:48)
[2022-04-23] MEDS ORDERED: SERTRALINE 100 MG TABLET PO ONE (21:52)
[2022-04-24] MEDS: MEROPENEM 500 MG in SODIUM CHLORIDE 0.9% 100 ML IV SCH ×4 (03:59→21:55)
[2022-04-24 05:31] LABS: Calcium 9.5 MG/DL (8.5-10.1); Osmolality,Calculated 278.3 MOS/KG (273-304); Potassium 4.2 MMOL/L (3.5-5.1)
[2022-04-24 05:46] LABS: Basophils % 0.4 % (0.0-0.8); Eosinophils # 0.2 10*3/uL (0.0-0.87); Eosinophils % 3.3 % (0.00-10.9); Hematocrit 35.7 VOL% (35.7-47.0); Immature Granulocytes % 0.9 %; Immature Granulocytes Absolute 0.06 #; Lymphocytes # 2.4 10*3/uL (1.4-4.0); Lymphocytes % 34.8 % (21.3-54.2); Mean Corpuscular HGB Conc 30.3 GM/DL (32-36); Mean Corpuscular Volume 86.9 FL (87-102); Mean Platelet Volume 11.9 FL (9.6-12.0); Monocytes # 0.6 10*3/uL (0.11-0.8); Monocytes % 8.4 % (1.7-12.7); Neutrophils % 52.2 % (38.7-73.9); Platelet Count 180 T/CUMM (130-400); Red Blood Count 4.11 MC/CUMM (3.8-5.5); Red Cell Distribution Width 15.6 % (9.3-17.3); White Blood Count 6.9 T/CUMM (4-12)
[2022-04-24 05:47] LABS: Hemoglobin 10.8 GM/DL (12.0-16.0)
[2022-04-24] MEDS: ALBUTEROL/IPRATROPIUM 3 ML NEB RESP TX SCH ×4 (07:18→19:19)
[2022-04-24] MEDS: LINACLOTIDE 145 MCG CAPSULE PO SCH (09:17)
[2022-04-24] MEDS: AZITHROMYCIN 250 MG TABLET PO SCH (09:21)
[2022-04-24] MEDS: TOPIRAMATE 25 MG TABLET PO SCH ×2 (09:21→21:54)
[2022-04-24] MEDS: amLODIPine 10 MG TABLET PO SCH (09:21)
[2022-04-24] MEDS: QUEtiapine 25 MG TABLET PO SCH ×2 (09:21→21:55)
[2022-04-24] MEDS: ASPIRIN EC 81 MG TABLET PO SCH (09:21)
[2022-04-24] MEDS: PANTOPRAZOLE 40 MG TABLET PO SCH (09:21)
[2022-04-24] MEDS: POTASSIUM CHLORIDE 20 MEQ TABLET PO SCH (09:21)
[2022-04-24] MEDS: POLYETHYLENE GLYCOL POWDER 17 GM PACK PO SCH (11:20)
[2022-04-24] MEDS: ONDANSETRON 4 MG/2 ML VIAL IV PRN (15:20)
[2022-04-24] MEDS: MORPHINE 2 MG/1 ML SYRINGE IV PRN (17:39)
[2022-04-24] MEDS: ROSUVASTATIN 20 MG TABLET PO SCH (21:52)
[2022-04-24] MEDS: SERTRALINE 100 MG TABLET PO SCH (21:53)
[2022-04-24] MEDS: MONTELUKAST 10 MG TABLET PO SCH (21:53)
[2022-04-24] MEDS: traZODone 50 MG TABLET PO SCH (21:54)
[2022-04-25] MEDS: MEROPENEM 500 MG in SODIUM CHLORIDE 0.9% 100 ML IV SCH ×4 (04:17→21:17)
[2022-04-25 05:52] LABS: Basophils % 0.4 % (0.0-0.8); Eosinophils # 0.2 10*3/uL (0.0-0.87); Eosinophils % 2.9 % (0.00-10.9); Hematocrit 34.5 VOL% (35.7-47.0); Hemoglobin 10.6 GM/DL (12.0-16.0); Immature Granulocytes % 1.2 %; Immature Granulocytes Absolute 0.08 #; Lymphocytes # 2.2 10*3/uL (1.4-4.0); Lymphocytes % 32.3 % (21.3-54.2); Mean Corpuscular HGB Conc 30.7 GM/DL (32-36); Mean Corpuscular Volume 85.4 FL (87-102); Mean Platelet Volume 10.8 FL (9.6-12.0); Monocytes # 0.6 10*3/uL (0.11-0.8); Monocytes % 8.2 % (1.7-12.7); Platelet Count 176 T/CUMM (130-400); Red Blood Count 4.04 MC/CUMM (3.8-5.5); Red Cell Distribution Width 15.7 % (9.3-17.3); White Blood Count 6.8 T/CUMM (4-12)
[2022-04-25 06:27] LABS: Calcium 9.4 MG/DL (8.5-10.1); Osmolality,Calculated 279.4 MOS/KG (273-304); Potassium 4.1 MMOL/L (3.5-5.1)
[2022-04-25] MEDS: ALBUTEROL/IPRATROPIUM 3 ML NEB RESP TX SCH ×5 (07:28→19:10)
[2022-04-25] MEDS: LINACLOTIDE 145 MCG CAPSULE PO SCH (09:18)
[2022-04-25] MEDS: DOCUSATE SODIUM 100 MG CAPSULE PO PRN (09:46)
[2022-04-25] MEDS: QUEtiapine 25 MG TABLET PO SCH ×2 (09:46→21:16)
[2022-04-25] MEDS: ASPIRIN EC 81 MG TABLET PO SCH (09:46)
[2022-04-25] MEDS: POTASSIUM CHLORIDE 20 MEQ TABLET PO SCH (09:47)
[2022-04-25] MEDS: TOPIRAMATE 25 MG TABLET PO SCH ×2 (09:47→21:16)
[2022-04-25] MEDS: POLYETHYLENE GLYCOL POWDER 17 GM PACK PO SCH (09:47)
[2022-04-25] MEDS: amLODIPine 10 MG TABLET PO SCH (09:47)
[2022-04-25] MEDS: PANTOPRAZOLE 40 MG TABLET PO SCH (09:47)
[2022-04-25] MEDS: ONDANSETRON 4 MG/2 ML VIAL IV PRN (15:56)
[2022-04-25] MEDS: MORPHINE 2 MG/1 ML SYRINGE IV PRN (21:15)
[2022-04-25] MEDS: traZODone 50 MG TABLET PO SCH (21:16)
[2022-04-25] MEDS: ROSUVASTATIN 20 MG TABLET PO SCH (21:16)
[2022-04-25] MEDS: SERTRALINE 100 MG TABLET PO SCH (21:16)
[2022-04-25] MEDS: MONTELUKAST 10 MG TABLET PO SCH (21:16)
[2022-04-26] MEDS: MEROPENEM 500 MG in SODIUM CHLORIDE 0.9% 100 ML IV SCH ×4 (02:37→20:50)
[2022-04-26 05:44] LABS: Basophils % 0.4 % (0.0-0.8); Eosinophils # 0.2 10*3/uL (0.0-0.87); Eosinophils % 2.4 % (0.00-10.9); Hemoglobin 10.7 GM/DL (12.0-16.0); Immature Granulocytes Absolute 0.08 #; Lymphocytes # 2.6 10*3/uL (1.4-4.0); Lymphocytes % 30.6 % (21.3-54.2); Mean Corpuscular HGB Conc 30.6 GM/DL (32-36); Mean Corpuscular Volume 86.2 FL (87-102); Mean Platelet Volume 11.7 FL (9.6-12.0); Monocytes # 0.6 10*3/uL (0.11-0.8); Monocytes % 7.4 % (1.7-12.7); Neutrophils % 58.2 % (38.7-73.9); Platelet Count 193 T/CUMM (130-400); Red Blood Count 4.06 MC/CUMM (3.8-5.5); Red Cell Distribution Width 15.5 % (9.3-17.3); White Blood Count 8.4 T/CUMM (4-12)
[2022-04-26 06:06] LABS: Calcium 9.3 MG/DL (8.5-10.1); Osmolality,Calculated 278.4 MOS/KG (273-304); Potassium 4.4 MMOL/L (3.5-5.1)
[2022-04-26] MEDS: ALBUTEROL/IPRATROPIUM 3 ML NEB RESP TX SCH ×4 (07:08→19:13)
[2022-04-26] MEDS: PANTOPRAZOLE 40 MG TABLET PO SCH (08:49)
[2022-04-26] MEDS: POTASSIUM CHLORIDE 20 MEQ TABLET PO SCH (08:50)
[2022-04-26] MEDS: TOPIRAMATE 25 MG TABLET PO SCH ×2 (08:50→20:48)
[2022-04-26] MEDS: POLYETHYLENE GLYCOL POWDER 17 GM PACK PO SCH (08:53)
[2022-04-26] MEDS: amLODIPine 10 MG TABLET PO SCH (08:53)
[2022-04-26] MEDS: ASPIRIN EC 81 MG TABLET PO SCH (08:53)
[2022-04-26] MEDS: LINACLOTIDE 145 MCG CAPSULE PO SCH (08:53)
[2022-04-26] MEDS: QUEtiapine 25 MG TABLET PO SCH ×2 (08:55→20:48)
[2022-04-26] MEDS: ONDANSETRON 4 MG/2 ML VIAL IV PRN (10:53)
[2022-04-26] MEDS: traZODone 50 MG TABLET PO SCH (20:48)
[2022-04-26] MEDS: ROSUVASTATIN 20 MG TABLET PO SCH (20:48)
[2022-04-26] MEDS: SERTRALINE 100 MG TABLET PO SCH (20:49)
[2022-04-26] MEDS: MONTELUKAST 10 MG TABLET PO SCH (20:49)
[2022-04-27] MEDS: MEROPENEM 500 MG in SODIUM CHLORIDE 0.9% 100 ML IV SCH ×2 (03:13→11:07)
[2022-04-27] MEDS: ALBUTEROL/IPRATROPIUM 3 ML NEB RESP TX SCH (07:02)
[2022-04-27] MEDS ORDERED: MEPERIDINE 50 MG/1 ML VIAL IM ONE (07:15)
[2022-04-27] MEDS ORDERED: PROMETHAZINE 25 MG/1 ML VIAL IM ONE (07:15)
[2022-04-27] MEDS ORDERED: MIDAZOLAM 2 MG/2 ML VIAL IV ONE (07:45)
[2022-04-27] MEDS ORDERED: LIDOCAINE 2% 20 ML VIAL RESP TX ONE (07:45)
[2022-04-27] MEDS ORDERED: LIDOCAINE 1% 20 ML VIAL MISC INJ ONE (07:45)
[2022-04-27] MEDS ORDERED: LIDOCAINE 2% VISCOUS 100 ML BOTTLE SWISH/SPIT ONE (07:45)
[2022-04-27] MEDS: LINACLOTIDE 145 MCG CAPSULE PO SCH (10:11)
[2022-04-27] MEDS: amLODIPine 10 MG TABLET PO SCH (10:12)
[2022-04-27] MEDS: PANTOPRAZOLE 40 MG TABLET PO SCH (10:12)
[2022-04-27] MEDS: QUEtiapine 25 MG TABLET PO SCH (10:12)
[2022-04-27] MEDS: POTASSIUM CHLORIDE 20 MEQ TABLET PO SCH (10:12)
[2022-04-27] MEDS: ASPIRIN EC 81 MG TABLET PO SCH (10:12)
[2022-04-27] MEDS: TOPIRAMATE 25 MG TABLET PO SCH (10:12)
[2022-04-27] MEDS: POLYETHYLENE GLYCOL POWDER 17 GM PACK PO SCH (11:07)
[2022-04-27 12:44] VITALS: BP 141/59
== END 2022-04-27 13:42 | disposition home health service (06) | DRG 194 ==
LOC: N.ED 09:22 → N.EDINP 12:12 → SUATTDRO 12:12 → N.EDINP 14:36 → N.5E 16:27
PROVIDERS: ADMIT Internal Medicine; ATTEND Internal Medicine